=== PATIENT | male | born 1975 | race African-American/Black ===

== ENCOUNTER 2018-01-09 00:22 | Emergency (ER) | payer OTHER ==
[~2018-01-09] VITALS: Ht 182.9 cm; Wt 158.8 kg
[~2018-01-09 00:22] MED LIST: ULTRAM 50MG TAB50 MG PO
[2018-01-09] MEDS ORDERED: PENICILLIN VK500 M1 PO (01:08)
[2018-01-09] MEDS ORDERED: TRAMADOL 50 MG50 MG PO (01:08)
[2018-01-09 01:25] VITALS: BP 170/88
== END 2018-01-09 01:39 | disposition home or self-care (01) ==
LOC: ER 00:22
DX: K04.7 Periapical abscess without sinus (principal); K02.9 Dental caries, unspecified; M10.9 Gout, unspecified; F17.210 Nicotine dependence, cigarettes, uncomplicated

== ENCOUNTER 2019-03-28 09:46 | Emergency (ER) | payer OTHER ==
[~2019-03-28] VITALS: Ht 180.3 cm; Wt 152.4 kg
[~2019-03-28 09:46] MED LIST changes: +PENICILLIN VK500 M1 PO; +TRAMADOL 50 MG50 MG PO
[2019-03-28 11:03] LABS: ABSOLUTE NEUTROPHILS 8.3 thou/uL (1.4-8.2); BASOPHILS 0.9 % (0.0-2.0); EOSINOPHILS 1.6 % (0.0-3.0); HEMATOCRIT 40.3 % (42.0-52.0); HEMOGLOBIN 12.7 gm/dL (14.0-18.0); LYMPHOCYTES 32.5 % (24.0-44.0); MCH 23.8 pg (26.0-34.0); MCHC 31.4 g/dL (28.0-37.0); MONOCYTES 7.1 % (1.0-8.0); PLATELET COUNT 363 thou/uL (150-400); POLYS 57.9 % (36.0-66.0); RBC 5.31 mil/uL (4.50-6.00); RDW 14.3 % (10.5-14.5); WBC 14.4 thou/uL (4.0-11.0)
[2019-03-28 11:11] LABS: CALCIUM 9.5 mg/dL (8.5-10.1); CREATININE 0.9 mg/dL (0.7-1.3); POTASSIUM 4.3 mmol/L (3.5-5.1)
[2019-03-28 11:14] LABS: URIC ACID* 3.7 mg/dL (2.6-7.2)
[2019-03-28] MEDS ORDERED: NORCO 5-325 TA1 EAC1 PO (13:26)
[2019-03-28] MEDS ORDERED: MEDROLDOSEPACK PO (13:26)
[2019-03-28] MEDS ORDERED: INDOMETHACIN 2525 MG PO (13:26)
[2019-03-28 13:46] VITALS: BP 143/74
== END 2019-03-28 14:52 | disposition home or self-care (01) ==
LOC: ER 09:46
PROVIDERS: Emergency Medicine
DX: M25.532 Pain in left wrist (principal); M25.432 Effusion, left wrist; M10.9 Gout, unspecified; F17.210 Nicotine dependence, cigarettes, uncomplicated; Z87.440 Personal history of urinary (tract) infections

== ENCOUNTER 2020-12-18 19:57 | Emergency (ER) | payer MEDICARE ==
[~2020-12-18] VITALS: Ht 180.3 cm; Wt 162.8 kg
[~2020-12-18 19:57] MED LIST changes: +INDOMETHACIN 2525 MG PO; +MEDROLDOSEPACK PO; +NORCO 5-325 TA1 EAC1 PO
[2020-12-18] MEDS ORDERED: TOPROL XL100 MG PO (20:06)
[2020-12-18] MEDS ORDERED: LIPITOR 20 MG T20 M1 PO (20:06)
[2020-12-18] MEDS ORDERED: MEDROLDOSEPACK PO (21:28)
[2020-12-18] MEDS ORDERED: HYDROCODON-ACE1 EAC7 PO (21:28)
[2020-12-18] MEDS ORDERED: INDOMETHACIN 2525 MG PO (21:28)
[2020-12-18 22:21] VITALS: BP 141/78
== END 2020-12-18 22:22 | disposition home or self-care (01) ==
LOC: ER 19:57
DX: M10.011 Idiopathic gout, right shoulder (principal); M10.9 Gout, unspecified; F17.210 Nicotine dependence, cigarettes, uncomplicated; E66.9 Obesity, unspecified